=== PATIENT | female | born 1990 | race Caucasian/White ===

== ENCOUNTER 2025-02-21 06:08 | Emergency (ER) | payer MEDICAID ==
[~2025-02-21] VITALS: Ht 152.4 cm; Wt 75.0 kg
[2025-02-21 06:20] VITALS: O2SAT 98
[2025-02-21] MEDS ORDERED: LIDOCAINE HCL 1% 20ML VIAL INFIL ONE (06:45)
[2025-02-21 08:11] VITALS: BP 95/53; PULSE 79; RESP 16; TEMP 36.6; O2SAT 98
== END 2025-02-21 08:12 | disposition home or self-care (01) ==
LOC: ER 06:08
DX: S41.112A Laceration without foreign body of left upper arm, initial encounter (principal); X58.XXXA Exposure to other specified factors, initial encounter; Y93.89 Activity, other specified; Y92.89 Other specified places as the place of occurrence of the external cause; Y99.8 Other external cause status
CPT/HCPCS: 12002; 99282; J2003; Z7610

== ENCOUNTER 2025-02-28 11:45 | Emergency (ER) | payer MEDICAID ==
[~2025-02-28] VITALS: Ht 167.6 cm; Wt 70.0 kg
[2025-02-28 11:54] VITALS: O2SAT 100
[2025-02-28 13:43] VITALS: BP 125/60; PULSE 62; RESP 18; TEMP 37.1; O2SAT 100
== END 2025-02-28 13:55 | disposition home or self-care (01) ==
LOC: ER 12:43
DX: S41.112D Laceration without foreign body of left upper arm, subsequent encounter (principal); X58.XXXD Exposure to other specified factors, subsequent encounter
CPT/HCPCS: 99282; Z7610 ×2